=== PATIENT | female | born 1940 | race Caucasian/White ===

== ENCOUNTER → 2017-05-11 | Outpatient (CLI) | payer MEDICARE, OTHER ==
[~2017-05-11] MED LIST: HYDROCHLOROTHIA25 M1 PO; OXYCONTIN20 M1 PO; POTASSIUM CHLO20 ME2 PO; SYNTHROID PO
--- NOTE | 2017-05-15 08:58 | RADIOLOGY REPORT PS360 ---
DIG MAMM-SCREEN ISATU W/CAD CAD Screening COMPARISON: Digital mammograms 02/20/2014 and 08/07/2015 INDICATION: The patient has had previous bilateral lumpectomies for malignant disease. TECHNIQUE: Standard CC and MLO images were obtained. R2 CAD reviewed. FINDINGS: Again noted is a diffusely dense and heterogenic parenchymal pattern lessening the sensitivity of mammography. There are multiple benign-appearing calcifications in each breast as noted previously. Again noted is a stable nodular density outer quadrant left breast. Postlumpectomy scarring is slightly more prominent left breast than right and this has been noted previously. There are surgical clips right axilla. There is no new or suspicious lesion and there are no suspicious microcalcifications. IMPRESSION: Markedly dense parenchymal pattern with post surgical scarring in each breast but with known suspicious lesion seen and recommend yearly follow-up BI-RADS CATEGORY: 2_Benign RECOMMENDED FOLLOWUP: 12M 12 MONTH FOLLOW-UP (A letter has been sent to the patient regarding results of the study.)
== END ==
LOC: RAD 05-01 10:00
DX: Z12.31 Encounter for screening mammogram for malignant neoplasm of breast (principal)
CPT/HCPCS: G0202